=== PATIENT | male | born 1985 | race Caucasian/White ===

== ENCOUNTER 2016-11-27 11:48 | Emergency (ER) | payer OTHER ==
[~2016-11-27] VITALS: Ht 175.3 cm; Wt 97.5 kg
[2016-11-27 11:59] VITALS: BP 125/84
[2016-11-27] MEDS ORDERED: KETOROLAC TROMETH 60MG/2ML VIAL IM ONE (12:45)
== END 2016-11-27 13:22 | disposition home or self-care (01) ==
LOC: ER 11:48
DX: S82.301A Unspecified fracture of lower end of right tibia, initial encounter for closed fracture (principal); S50.811A Abrasion of right forearm, initial encounter; S90.811A Abrasion, right foot, initial encounter; V24.4XXA Motorcycle driver injured in collision with heavy transport vehicle or bus in traffic accident, initial encounter; Y93.89 Activity, other specified; Y99.8 Other external cause status; Y92.410 Unspecified street and highway as the place of occurrence of the external cause
CPT/HCPCS: 29515; 73600; 73620; 96372; 99284; J1885